=== PATIENT | female | born 1955 | race Caucasian/White ===

== ENCOUNTER 2021-05-14 10:11 | Outpatient (CLI) | payer BC, SELFPAY ==
--- NOTE | ~2021-05-14 | XR_ITS ---
XR lumbar spine 2-3V 05/14/2021 10:35 Indication: Healed injury. Back pain. Procedure: 3 views lumbar spine Comparison: No prior studies for comparison. Findings: There is a superior endplate compression fracture of L1, possibly acute. There is disc narr owing and endplate degenerative change at L4-5 and to a lesser degree L5-S1. There is mild lower lumb ar facet hypertrophy. Impression: 1: L1 superior endplate compression fracture, possibly acute. There is approximately 20% loss of vert ebral body height. Consider correlation with CT. Reviewed, dictated and finalized at location A. Impression: 1: L1 superior endplate compression fracture, possibly acute. There is approxim ately 20% loss of vertebral body height. Consider correlation with CT.
== END 2021-05-14 10:12 | disposition home or self-care (01) ==
PROVIDERS: PCP Emergency Medicine; Visit Provider Emergency Medicine
DX: M54.9 Dorsalgia, unspecified (principal); S32.019A Unspecified fracture of first lumbar vertebra, initial encounter for closed fracture
CPT/HCPCS: 72100

== ENCOUNTER 2021-05-14 11:25 | Emergency (ER) | payer BC, SELFPAY ==
--- NOTE | ~2021-05-14 | CT_ITS ---
EXAMINATION: CT lumbar spine wo con DATE: 05/14/2021 12:02 INDICATION: L1 fracture. TECHNIQUE: Computed tomography (CT) of the lumbar spine was performed without intravenous contrast. T he dose-length product was 354.43 mGy-cm. Automated exposure control and iterative reconstruction mulugeta hnique were employed. COMPARISON: Lumbar spine series dated 05/14/2021 FINDINGS: There is an acute/subacute L1 burst fracture with up to 40% loss of vertebral body height a nteriorly. There is 2.5 mm retropulsion into the spinal canal. There is levocurvature of the lumbar s pine. Moderate spondylosis at L4-5 characterized by disc narrowing, endplate sclerosis and marginal o steophytes. There is a partially visualized liver cysts. Mild atherosclerosis. Nonobstructive bowel gas. Visualiz ed aspects of the kidneys are unremarkable. IMPRESSION: 1. Acute/subacute L1 burst fracture with up to 40% loss of vertebral body height anteriorly and subtl e posterior retropulsion measuring 2.5 mm into the central canal. Reviewed, dictated and finalized at location A. IMPRESSION: 1. Acute/subacute L1 burst fracture with up to 40% loss of vertebral body heigh t anteriorly and subtle posterior retropulsion measuring 2.5 mm into the centra l canal.
[2021-05-14 11:33] VITALS: BP 164/89; PULSE 82; RESP 16; TEMP 36.7; O2SAT 98
[2021-05-14 12:59] VITALS: BP 146/79; PULSE 85; RESP 16; O2SAT 97
--- NOTE | 2021-05-14 14:16 | ED.BACK ---
HPI - Back Pain/Injury General Chief Complaint: Back Pain/Injury Stated Complaint: BACK PAIN ?FX Time Seen by Provider: 05/14/21 11:36 Source: patient, RN notes reviewed and old records reviewed Mode of arrival: ambulatory Limitations: no limitations History of Present Illness HPI Narrative: Patient is a 66-year-old female who presents to emergency department for evaluation of low back pain patient was seen in outpatient imaging today had x-ray which revealed a lumbar compression fracture patient was sent over for further evaluation given this noting that she had done a yoga procedure 2 weeks ago patient notes minimal discomfort in the lower back pain patient presents in no distress denies any focal neurologic deficits or other injuries or complaints. Related Data Allergies Allergy/AdvReac Type Severity Reaction Status Date / Time No Known Allergies Allergy Verified 05/14/21 13:00 Review of Systems Review of Systems: All systems reviewed & are unremarkable except as noted in HPI and below PMFSH Past Medical History Medical History (Updated 05/14/21 @ 14:22 by Marv Moody PA-C) Other screening mammogram Family History Family History Mother Family history of heart disease in male family member before age 55 Cerebrovascular accident, Onset Age: 81 Social History Social History Smoking status: Never smoker Alcohol intake: current Exam Narrative: Exam Narrative: GENERAL: Well-appearing, well-nourished, and in no acute distress. HEAD: Normocephalic, atraumatic. EYES: PERRLA and EOMI. ENT: Nares clear, no rhinorrhea or epistaxis. Mucous membranes moist. CHEST: Clear to auscultation. No respiratory distress. No wheezes rales or rhonchi HEART: Regular rate and rhythm. No murmur heard. Normal peripheral pulses. ABDOMEN: Soft, nontender, nondistended EXTREMITIES: Normal range of motion. No edema. Mild discomfort of the lower paraspinal lumbar region no midline tenderness no deformities SKIN: Warm, dry, no rash. NEURO: No focal deficits. Alert and oriented x3. Cranial nerves II through XII grossly intact. Normal speech and gait PSYCH: Normal mood and affect. Course Course Emergency Course: Patient in the room in no distress aware of case findings treatment plan diagnosis and discussion with neurosurgery at [facility] and will follow in the clinic agrees with the plan Consultations Consultation #1: Spoke with Dr. Roque neurosurgery at [facility] who would like the patient to follow in clinic follow-up number was provided will follow with Dr. Carty her nurse practitioner in the clinic Date: 05/14/21 Vital Signs Vital signs: Vital Signs Temperature 98.1 F 05/14/21 11:33 Pulse Rate 82 05/14/21 11:33 Respiratory Rate 16 05/14/21 11:33 Blood Pressure 164/89 H 05/14/21 11:33 Pulse Oximetry 98 05/14/21 11:33 Temperature 98.1 F 05/14/21 11:33 Pulse Rate 85 05/14/21 12:59 Respiratory Rate 16 05/14/21 12:59 Blood Pressure 146/79 H 05/14/21 12:59 Pulse Oximetry 97 05/14/21 12:59 MDM - Back Pain/Injury MDM Narrative Medical decision making narrative: Patient will be sent to the clinic outpatient neurosurgery at [facility] as recommended by neurosurgeons . patients pain is positional in nature and localized to back without signs of cord compression or cauda equina based on neurological exam, skeletal exam and history. Patient ambulates with steady gait and is stable for outpatient management given case findings. Imaging Data Radiologist's impression: ITS Impressions Lumbar Spine CT 05/14/21 12:16 IMPRESSION: 1. Acute/subacute L1 burst fracture with up to 40% loss of vertebral body height anteriorly and subtle posterior retropulsion measuring 2.5 mm into the central canal. Discharge Plan Discharge Clinical Impression: Burst
[2021-05-14 14:40] VITALS: BP 145/84; PULSE 78; RESP 16; O2SAT 100
== END 2021-05-14 14:41 | disposition home or self-care (01) ==
PROVIDERS: Emergency Provider Emergency Medicine; PCP Emergency Medicine
DX: S32.011A Stable burst fracture of first lumbar vertebra, initial encounter for closed fracture (principal); X50.9XXA Other and unspecified overexertion or strenuous movements or postures, initial encounter; Y93.B9 Activity, other involving muscle strengthening exercises
CPT/HCPCS: 72131; 99284

== ENCOUNTER 2021-08-01 08:28 | Outpatient (CLI) | payer BC, SELFPAY ==
--- NOTE | ~2021-08-01 | MM_ITS ---
EXAMINATION: MM screening patricia BI w julio c HISTORY: Screening TECHNIQUE: Craniocaudal and mediolateral oblique 3-D tomosynthesis images were obtained and synthetic 2-D images were generated. CAD analysis was submitted and interpreted. COMPARISON: Comparison to multiple prior studies sequentially, with oldest reviewed study dated 06/09. BREAST PARENCHYMAL COMPOSITION: The breasts are heterogenously dense, which may obscure small masses. FINDINGS: There is no evidence of suspicious mass, calcification, or architectural distortion to sugg est malignancy in either breast. There has been no suspicious interval change. IMPRESSION: 1. No mammographic evidence of malignancy. 2. Recommend routine screening mammography in one year. BI-RADS Category 1: Negative Reviewed, dictated and finalized at location A.
== END 2021-08-01 08:29 | disposition home or self-care (01) ==
LOC: ANHIMG 08:28
PROVIDERS: PCP Emergency Medicine; Visit Provider Emergency Medicine
DX: Z12.31 Encounter for screening mammogram for malignant neoplasm of breast (principal)
CPT/HCPCS: 77063; 77067

== ENCOUNTER 2021-10-19 07:45 | Outpatient (CLI) | payer BC, SELFPAY ==
--- NOTE | ~2021-10-19 | DEXA_ITS ---
Bone Density Report Name: Lisa Thorpe Age: 66 Sex: Female Ethnicity: White Date of : 1955 Indication: postmenopausal osteoporosis; monitoring treatment; parental hip fracture; height loss; hysterectomy; Referring Provider: JULIANA VELAZQUEZ Study: Bone densitometry was performed. Exam Date: October 19, 2021 Accession number: [id number] Bone Density: Region BMD T-score Z-score Classification AP Spine (L1-L4) 0.688 -3.3 -1.3 Osteoporosis Femoral Neck (Left) 0.519 -3.0 -1.3 Osteoporosis Total Hip (Left) 0.663 -2.3 -0.9 Osteopenia Total Hip Bilateral Avg 0.641 -2.5 -1.1 Osteoporosis Femoral Neck (Right) 0.463 -3.5 -1.8 Osteoporosis Total Hip (Right) 0.618 -2.7 -1.3 Osteoporosis World Health Organization criteria for BMD impression classify patients as: Normal (T-score at or above -1.0), Osteopenia (T-score between -1.0 and -2.5), or Osteoporosis (T-score at or below -2.5). 10-year Fracture Risk: FRAX not reported because: Some T-score for Spine Total or Hip Total or Femoral Neck at or below -2.5 Treated for osteoporosis Previous Exams: Region Exam Age BMD T-score BMD Change BMD Change Date g/cm2 vs Baseline vs Previous AP Spine(L1-L4) 10/19/2021 66 0.688 -3.3 -0.182(-20.9%) -0.051(-6.9%)* 06/23/2019 64 0.739 -2.8 -0.132(-15.1%) -0.112(-13.1%) 05/16/2016 61 0.850 -1.8 -0.020(-2.3%)# 0.056(7.1%)# 06/09/2013 58 0.794 -2.3 -0.076(-8.8%)# -0.075(-8.7%)# 02/13/2011 55 0.869 -1.6 -0.001(-0.1%) -0.001(-0.1%) 05/06/2008 53 0.870 -1.6 Total Hip(Left) 10/19/2021 66 0.663 -2.3 -0.096(-12.7%) -0.063(-8.7%)* 06/23/2019 64 0.727 -1.8 -0.033(-4.3%)# -0.056(-7.1%)* 05/16/2016 61 0.782 -1.3 0.023(3.0%)# 0.021(2.7%)# 06/09/2013 58 0.762 -1.5 0.002(0.3%)# 0.048(6.7%)# 02/13/2011 55 0.714 -1.9 -0.046(-6.1%)* -0.046(-6.1%)* 05/06/2008 53 0.759 -1.5 Total Hip(Right) 10/19/2021 66 0.618 -2.7 -0.158(-20.4%) -0.075(-10.9%) 06/23/2019 64 0.694 -2.0 -0.083(-10.7%) -0.056(-7.5%)* 05/16/2016 61 0.750 -1.6 -0.027(-3.5%)# -0.012(-1.6%)# 06/09/2013 58 0.762 -1.5 -0.015(-1.9%)# 0.028(3.8%)# 02/13/2011 55 0.734 -1.7 -0.043(-5.6%)* -0.043(-5.6%)* 05/06/2008 53 0.777 -1.4 *Denotes significance at 95% confidence level, LSC for AP Spine = 0.022 g/cm2, LSC for Total Hip = 0.027 g/cm2 Clinical Information Provided by Patient: Parent has had a hip fracture Is being treated for osteoporosis Has used the following medications
== END 2021-10-19 07:46 | disposition home or self-care (01) ==
LOC: ANHIMG 07:46
PROVIDERS: PCP Emergency Medicine; Visit Provider Emergency Medicine
DX: Z78.0 Asymptomatic menopausal state (principal); M80.87 Other osteoporosis with current pathological fracture, ankle and foot
CPT/HCPCS: 77080

== ENCOUNTER 2024-08-27 08:10 | Outpatient (CLI) | payer BC, SELFPAY ==
--- NOTE | ~2024-08-27 | MM_ITS ---
EXAMINATION: MM screening patricia BI w julio c HISTORY: Screening TECHNIQUE: Craniocaudal and mediolateral oblique 3-D tomosynthesis images were obtained and synthetic 2-D images were generated. CAD analysis was submitted and interpreted. COMPARISON: Comparison to multiple prior studies sequentially, with oldest reviewed study dated 12/2013. BREAST PARENCHYMAL COMPOSITION: Dense: The breasts are heterogeneously dense, which may obscure small masses FINDINGS: There is no evidence of suspicious mass, calcification, or architectural distortion to sugg est malignancy in either breast. There has been no suspicious interval change. IMPRESSION: 1. No mammographic evidence of malignancy. 2. Recommend routine screening mammography in one year. BI-RADS Category 1: Negative Reviewed, dictated and finalized at location B.
--- NOTE | ~2024-08-27 | DEXA_ITS ---
Bone Density Report Name: ANNE MENJIVAR Age: 69 Sex: Female Ethnicity: White Date of : 1955 Indication: postmenopausal osteoporosis; monitoring treatment; prior fracture; hysterectomy; Referring Provider: JULIANA VELAZQUEZ Study: Bone densitometry was performed. Exam Date: August 27, 2024 Accession number: [id number] Bone Density: Region BMD T-score Z-score Classification AP Spine(L1-L4) 0.693 -3.2 -1.1 Osteoporosis Femoral Neck (Left) 0.486 -3.3 -1.5 Osteoporosis Total Hip (Left) 0.618 -2.7 -1.1 Osteoporosis Femoral Neck (Right) 0.475 -3.4 -1.6 Osteoporosis Total Hip (Right) 0.613 -2.7 -1.2 Osteoporosis Total Hip Mean 0.615 -2.7 -1.2 Osteoporosis World Health Organization criteria for BMD impression classify patients as: Normal (T-score at or above -1.0), Osteopenia (T-score between -1.0 and -2.5), or Osteoporosis (T-score at or below -2.5). 10-year Fracture Risk: FRAX not reported because: Some T-score for Spine Total or Hip Total or Femoral Neck at or below -2.5 Prior hip or vertebral fracture Treated for osteoporosis Previous Exams: Region Exam Age BMD T-score BMD Change BMD Change Date g/cm2 vs Baseline vs Previous AP Spine (L1-L4) 08/27/2024 69 0.693 -3.2 -0.101 (-12.7% 0.005 (0.8%)# 10/19/2021 66 0.688 -3.3 -0.106 (-13.4% -0.051 (-6.9%) 06/23/2019 64 0.739 -2.8 -0.055 (-7.0%) -0.112 (-13.1% 05/16/2016 61 0.850 -1.8 0.056 (7.1%)# 0.056 (7.1%)# 06/09/2013 58 0.794 -2.3 Total Hip(Left) 08/27/2024 69 0.618 -2.7 -0.144 (-18.9% -0.046 (-6.9%) 10/19/2021 66 0.663 -2.3 -0.098 (-12.9% -0.063 (-8.7%) 06/23/2019 64 0.727 -1.8 -0.035 (-4.6%) -0.056 (-7.1%) 05/16/2016 61 0.782 -1.3 0.021 (2.7%)# 0.021 (2.7%)# 06/09/2013 58 0.762 -1.5 Total Hip(Right) 08/27/2024 69 0.613 -2.7 -0.149 (-19.5% -0.005 (-0.9%) 10/19/2021 66 0.618 -2.7 -0.143 (-18.8% -0.075 (-10.9% 06/23/2019 64 0.694 -2.0 -0.068 (-8.9%) -0.056 (-7.5%) 05/16/2016 61 0.750 -1.6 -0.012 (-1.6%) -0.012 (-1.6%) 06/09/2013 58 0.762 -1.5 *Denotes significance at 95% confidence level, LSC for AP Spine = 0.022 g/cm2, LSC for Total Hip = 0.027 g/cm2 # Denotes dissimilar scan types or analysis methods Clinical Information Provided by Patient: Have had a previous hip or vertebral fracture Has had a low trauma fracture Is being treated for osteoporosis Has used the following medications: Vitamin D, Calcium Has the following medical conditions: Eva
== END 2024-08-27 08:11 | disposition home or self-care (01) ==
PROVIDERS: PCP Emergency Medicine; Visit Provider Emergency Medicine
DX: Z12.31 Encounter for screening mammogram for malignant neoplasm of breast (principal); M81.0 Age-related osteoporosis without current pathological fracture; Z78.0 Asymptomatic menopausal state; Z13.820 Encounter for screening for osteoporosis
CPT/HCPCS: 77063; 77067; 77080